=== PATIENT | male | born 1965 | race Caucasian/White ===

== ENCOUNTER 2018-08-08 11:40 | Emergency (ER) | payer BC ==
[2018-08-08] MEDS: KETOROLAC 30 MG INJ IM (15:31)
[2018-08-08] MEDS: DEXAMETHASONE 10 MG/ML 1 ML INJ IM (15:31)
== END 2018-08-08 16:31 | disposition home or self-care (01) ==
LOC: FTE 11:40
DX: M10.9 Gout, unspecified (principal)
CPT/HCPCS: 96372; 99284-25